=== PATIENT | female | born 1945 | race Caucasian/White ===

== ENCOUNTER → 2024-07-06 10:37 | Outpatient (REF) | payer MEDICARE, SELFPAY | LOC: EMG 10:37 | PROVIDERS: ATTENDING PHYSICIAN Orthopaedic Surgery; FAMILY PHYSICIAN Family Medicine | DX: G56.00 Carpal tunnel syndrome, unspecified upper limb (principal); R20.2 Paresthesia of skin; G56.03 Carpal tunnel syndrome, bilateral upper limbs | CPT/HCPCS: 95886; 95911 ==

== ENCOUNTER → 2024-11-03 10:08 | Outpatient (REF) | payer MEDICARE, SELFPAY | LOC: HWRAD 10:08 | PROVIDERS: FAMILY PHYSICIAN Family Medicine | DX: J18.9 Pneumonia, unspecified organism (principal) | CPT/HCPCS: 71046 ==

== ENCOUNTER → 2024-12-07 12:28 | Outpatient (REF) | payer MEDICARE, SELFPAY | LOC: HWRAD 12:28 | DX: J18.9 Pneumonia, unspecified organism (principal) | CPT/HCPCS: 71046 ==

== ENCOUNTER → 2025-01-25 15:15 | Outpatient (REF) | payer MEDICARE, SELFPAY | LOC: HWRAD 15:15 | DX: J18.9 Pneumonia, unspecified organism (principal) | CPT/HCPCS: 71046 ==

== ENCOUNTER → 2025-04-14 08:30 | Outpatient (REF) | payer MEDICARE, SELFPAY | LOC: HWRAD 08:30 | PROVIDERS: ATTENDING PHYSICIAN Internal Medicine Critical Care Medicine; FAMILY PHYSICIAN Family Medicine | DX: R06.02 Shortness of breath (principal); J18.9 Pneumonia, unspecified organism | CPT/HCPCS: 71250 ==